=== PATIENT | male | born 1935 | race Two or more races ===

== ENCOUNTER → 2016-11-04 | Outpatient (CLI) | payer OTHER | LOC: CIMAGING 13:06 | PROVIDERS: ATTEND Internal Medicine Endocrinology, Diabetes & Metabolism | DX: T56 Toxic effect of metals (principal); J44.9 Chronic obstructive pulmonary disease, unspecified; I51.7 Cardiomegaly | CPT/HCPCS: 71020-PO ==

== ENCOUNTER → 2017-10-22 | Outpatient (CLI) | payer OTHER | LOC: FCPNEURO 21:00 | PROVIDERS: ATTEND Psychiatry & Neurology Sleep Medicine | DX: G47.39 Other sleep apnea (principal) ==